=== PATIENT | male | born 1980 | race Caucasian/White ===

== ENCOUNTER 2017-01-20 05:13 | Emergency (ER) | payer SELFPAY ==
[~2017-01-20 05:13] MED LIST: DOXY100T PO; SULF1TAB47 PO; Z.0.NO CURRENT MEDS
[2017-01-20 05:14] VITALS: BP 148/81; PULSE 73; RESP 18; TEMP 98.5; O2SAT 98
[2017-01-20] MEDS ORDERED: IBUP800T23 PO (06:05)
[2017-01-20] MEDS ORDERED: CIPR0.3S2 RIGHT EAR (06:05)
--- NOTE | 2017-01-20 06:05 | PD ---
HPI Chief Complaint: Foreign Body Time Seen by Provider: 05:50 Travel History International Travel<30 days: No Contact w/Intl Traveler<30days: No Traveled to known affect area: No History of Present Illness HPI Patient's 36-year-old male presenting to emergency for evaluation of a foreign body in his right ear. Patient states that he felt something moving around in there, patient's stated that she was able to visualize some sort of insect in his ear. Patient states it's painful, he rates his pain a 7 out of 10. He denies any other complaints at this time. PFSH Past Medical History Medical History: Denies Significant Hx Genitourinary: Yes Past Surgical History Other Surgery: Yes (JAW) Social History Alcohol Use: Yes Tobacco Use: Yes (1/WEEK) Substance Use: No Allergies-Medications (Allergen,Severity, Reaction): Coded Allergies: No Known Allergies (Verified , 01/20/17) Reported Meds & Prescriptions Reported Meds & Active Scripts Active Ibuprofen 800 Mg Tab 800 Mg PO Q6HR PRN Ciprofloxacin Opth Drops (Ciprofloxacin HCl) 0.3% Soln 2 Drop RIGHT EAR BID while awake x 5 days. Review of Systems Except as stated in HPI: all other systems reviewed are Neg HENT: Positive: Earache Physical Exam Narrative GENERAL: Well-nourished, well-developed patient. SKIN: Focused skin assessment warm/dry. HEAD: Normocephalic. EARS: Right external ear canal has a visible insect. EYES: No scleral icterus. No injection or drainage. NECK: Supple, trachea midline. No JVD or lymphadenopathy. CARDIOVASCULAR: Regular rate and rhythm without murmurs, gallops, or rubs. RESPIRATORY: Breath sounds equal bilaterally. No accessory muscle use. GASTROINTESTINAL: Abdomen soft, non-tender, nondistended. MUSCULOSKELETAL: No cyanosis, or edema. BACK: Nontender without obvious deformity. No CVA tenderness. Data Data Last Documented VS Vital Signs Date Time Temp Pulse Resp B/P Pulse Ox O2 Delivery O2 Flow Rate FiO2 01/20/17 05:14 98.5 73 18 148/81 98 Room Air MDM Medical Decision Making Medical Screen Exam Complete: Yes Emergency Medical Condition: Yes Interpretation(s) Vital Signs Date Time Temp Pulse Resp B/P Pulse Ox O2 Delivery O2 Flow Rate FiO2 01/20/17 05:14 98.5 73 18 148/81 98 Room Air Differential Diagnosis Otitis media versus otitis externa versus effusion versus foreign body versus other Narrative Course The patient is a 36-year-old male presenting to the emergency department for evaluation of a retained foreign body in his right ear. Physical exam revealed an insect in the right external ear canal. The initial attempt to remove insect was performed with a curette, a piece of an insect was removed. Patient was unable to tolerate the curette in his ear due to pain so a 50 cc syringe of normal saline was used to irrigate the ear canal. Upon reassessment there was no longer any retained foreign body/insect visible. The right external ear canal was erythematous, the tympanic membrane was intact. Patient will be given a prescription for ciprofloxacin eye drops to instill in his ear as well as ibuprofen for pain. He was encouraged to return to emergency department for any new or worsening symptoms or follow up with open hearth helper. Patient and verbalized understanding of discharge instructions. Patient is stable for discharge. Diagnosis Primary Impression: Foreign body of ear, right Qualified Code: T16.1XXA - Foreign body of ear, right, initial encounter Additional Impression: Otitis externa of right ear Qualified Code: H60.91 - Otitis externa of right ear, unspecified chronicity, unspecified type Referrals: Ear / Nose / Throat Specialist Primary Care Physician Patient Instructions: Ear Foreign Body (ED), General Instructions, Otitis Externa (ED) Additional Instructions: USE MEDICATIONS DIRECTED FOLLOW UP WITH PRIMARY DOCTOR OR EAR, NOSE, THROAT DOCTOR RETURN TO THE EMERGENCY DEPARTMENT WITH ANY NEW OR WORSENING SYMPTOMS Med/Other Pt SpecificInfo: Prescription(s) given Scripts Ibuprofen 800 Mg Xnh121 Mg PO Q6HR PRN (PAIN) #40 TAB Ref 0 Prov:Zonia Gonzalez 01/20/17 Ciprofloxacin Opth Drops 0.3% Soln2 Drop RIGHT EAR BID #1 BOTTLE Ref 0 while awake x 5 days. Prov:Zonia Gonzalez 01/20/17 Disposition: 01 DISCHARGE HOME Condition: Stable Zonia Gonzalez Jan 20, 2017 06:05
== END 2017-01-20 06:24 | disposition home or self-care (01) ==
LOC: NEPK 05:13
DX: T16.1XXA Foreign body in right ear, initial encounter (principal); H60.91 Unspecified otitis externa, right ear; Z72.0 Tobacco use
CPT/HCPCS: 69200

== ENCOUNTER 2017-01-28 19:18 | Emergency (ER) | payer SELFPAY ==
[~2017-01-28] VITALS: Ht 180.3 cm; Wt 79.0 kg
[~2017-01-28 19:18] MED LIST changes: +CIPR0.3S2 RIGHT EAR; -DOXY100T PO; +IBUP800T23 PO; -SULF1TAB47 PO; -Z.0.NO CURRENT MEDS
[2017-01-28 19:19] VITALS: BP 145/85; PULSE 64; RESP 18; TEMP 99; O2SAT 98
--- NOTE | 2017-01-28 19:39 | PD ---
Physical Exam Date Seen by Provider: Jan 28, 2017 Time Seen by Provider: 19:38 Narrative 36 yo male here for bug to right ear. Was seen here recently and part of it came out. Came here because continous to feel like its there. No other symptoms. Has not seen anybody else. Vitals are stable. Awaiting bed placement. Data Data Last Documented VS Vital Signs Date Time Temp Pulse Resp B/P Pulse Ox O2 Delivery O2 Flow Rate FiO2 01/28/17 19:19 99.0 64 18 145/85 98 Room Air [facility] Medical Record Reviewed: Yes Supervised Visit with ANTHONY: Harsh Silva Jan 28, 2017 19:39
--- NOTE | 2017-01-28 20:30 | PD ---
HPI Chief Complaint: Foreign Body Time Seen by Provider: 20:05 Travel History International Travel<30 days: No Contact w/Intl Traveler<30days: No Traveled to known affect area: No History of Present Illness HPI 36-year-old male here for evaluation of possible right ear foreign body. The patient was seen in the emergency department last week for the same. He believes that only part of the insect found in his ear at that time was removed. He was discharged home with Cipro drops and ibuprofen. He reports continued pain in his right ear canal and slightly muffled hearing. He also reports intermittent dizziness. PFSH Past Medical History Genitourinary: Yes Past Surgical History Other Surgery: Yes (JAW) Social History Alcohol Use: Yes Tobacco Use: Yes (1/WEEK) Substance Use: No Allergies-Medications (Allergen,Severity, Reaction): Coded Allergies: No Known Allergies (Verified , 01/20/17) Reported Meds & Prescriptions Reported Meds & Active Scripts Active Ibuprofen 800 Mg Tab 800 Mg PO Q6HR PRN Ciprofloxacin Opth Drops (Ciprofloxacin HCl) 0.3% Soln 2 Drop RIGHT EAR BID while awake x 5 days. Review of Systems Except as stated in HPI: all other systems reviewed are Neg Physical Exam Narrative GENERAL: Well-developed, well-nourished, awake, alert, comfortable, no acute distress. ENT: Dark/insect appearing foreign body in right anterior external auditory canal. Tympanic membrane is unable to be fully visualized because of foreign body. NEUROLOGICAL: Awake and alert. No obvious cranial nerve deficits. Motor grossly within normal limits. Normal speech. PSYCHIATRIC: Appropriate mood and affect; insight and judgment normal. Data Data Last Documented VS Vital Signs Date Time Temp Pulse Resp B/P Pulse Ox O2 Delivery O2 Flow Rate FiO2 01/28/17 19:19 99.0 64 18 145/85 98 Room Air MDM Medical Decision Making Medical Screen Exam Complete: Yes Emergency Medical Condition: Yes Differential Diagnosis Right ear foreign body, ruptured TM Narrative Course Right ear foreign body was removed after flushing the ear canal with warm water several times. Foreign body identified to be hard of an insect. Tympanic membrane inspected after foreign body removed and is intact. External auditory canals slightly erythematous. Patient has a filled prescription for Cipro drops at home and was encouraged to continue using these. He is stable for discharge home with outpatient follow-up with a primary care physician/ENT physician this week. He was informed on when to return to the emergency department. He verbalizes understanding and agreement with plan. Procedures Procedure Narrative Right ear canal foreign body removal: Using a 20 cc syringe, warm water was used to irrigate the right ear canal several times. Eventually entire foreign body was removed and identified to be an insect. Tympanic membrane inspected after foreign body removal and is intact. External auditory canal is slightly erythematous. Patient tolerated the procedure well. No complications. Diagnosis Primary Impression: Foreign body of ear, right Qualified Code: T16.1XXD - Foreign body of ear, right, subsequent encounter Referrals: Primary Care Physician 3 days Additional Instructions: Follow-up with a primary care physician this week. Follow-up with ENT Dr. Regalado or an ENT specialist of your choice this week. Return to the emergency department for worsening symptoms or any other concerns. Disposition: 01 DISCHARGE HOME Condition: Stable Efren Farrell MD Jan 28, 2017 20:30
== END 2017-01-28 20:53 | disposition home or self-care (01) ==
LOC: NEPD 19:18
DX: T16.1XXA Foreign body in right ear, initial encounter (principal); R42 Dizziness and giddiness; Z72.0 Tobacco use; Z87.448 Personal history of other diseases of urinary system; X58.XXXA Exposure to other specified factors, initial encounter
CPT/HCPCS: 99283